=== PATIENT | female | born 1980 | race Caucasian/White ===

== ENCOUNTER 2016-09-18 05:50 | Emergency (ER) | payer BC, OTHER ==
[2016-09-18] MEDS ORDERED: methylPREDNISolone TAB* 4 MG PO ONE (06:45)
[2016-09-18] MEDS ORDERED: methylPREDNISolone SOD SUCC* 125 MG 2 ML VIAL IV ONE (06:50)
--- NOTE | 2016-09-18 07:01 | ED ---
Armando Mckeon Rebecca, scribed for Claude Brittonuel on 09/18/16 at 0639 . Complex/Multi-Sys Presentation - HPI Summary HPI Summary: Pt is a 35 y/o F who presents to ED c/o symptoms of MS flareups. C/o numbness in the R hand and RUE forearm. Sensation began suddenly this morning and has been constant since onset. Denies any pain. Notes that 3 weeks ago she began experiencing shoulder blade pain, which is typical for MS episodes. Neurologist is Dr. Razo ([place]). PMHx MS. Last course of steroids was 2 years ago at [facility], followed by a Prednisone titer. Current episode is similar to prior episodes of MS flareups. - History Of Current Complaint Chief Complaint: EDGeneral Time Seen by Provider: 09/18/16 06:11 Hx Obtained From: Patient Onset/Duration: Sudden Onset, Still Present Timing: Constant Severity Currently: None Aggravating Factor(s): Nothing Alleviating Factor(s): Nothing Associated Signs And Symptoms: Positive: Other - Numbness of the R forearm and hand - Allergies/Home Medications Allergies/Adverse Reactions: Allergies Allergy/AdvReac Type Severity Reaction Status Date / Time Penicillins Allergy Hives Verified 09/18/16 06:13 Sulfa Antibiotics Allergy Hives Verified 09/18/16 06:13 PMH/Surg Hx/FS Hx/Imm Hx Endocrine/Hematology History: Denies: Hx Diabetes Cardiovascular History: Reports: Other Cardiovascular Problems/Disorders - sinus tachycardia Denies: Hx Hypertension, Hx Pacemaker/ICD Respiratory History: Denies: Hx Asthma History: Denies: Hx Dialysis, Hx Renal Disease Musculoskeletal History: Reports: Other Musculoskeletal History - Hx MS Sensory History: Denies: Hx Hearing Aid Neurological History: Reports: Other Neuro Impairments/Disorders - numbness and tingling Psychiatric History: Denies: Hx Panic Disorder - Surgical History Surgery Procedure, Year, and Place: 6 yrs ago tib fib compound Hx Anesthesia Reactions: No Infectious Disease History: No Infectious Disease History: Denies: Traveled Outside the [place] in Last 30 Days - Family History Known Family History: Positive: Hypertension - Social History Alcohol Use: Rare Substance Use Type: Reports: None Smoking Status (MU): Current Every Day Smoker Type: Cigarettes Amount Used/How Often: 1/2 PPD Have You Smoked in the Last Year: Yes Review of Systems Negative: Arthralgia - Denes any pain Positive: Numbness - R hand and RUE forearm numbness All Other Systems Reviewed And Are Negative: Yes Physical Exam Triage Information Reviewed: Yes Vital Signs On Initial Exam: Initial Vitals Temp Pulse Resp BP Pulse Ox 98.3 F 90 18 102/66 100 09/18/16 06:12 09/18/16 06:12 09/18/16 06:12 09/18/16 06:12 09/18/16 06:12 Vital Signs Reviewed: Yes Appearance: Positive: Well-Appearing, No Pain Distress Skin: Positive: Warm, Skin Color Reflects Adequate Perfusion, Dry Eyes: Positive: EOMI, EARL Neck: Positive: Supple, Nontender Respiratory/Lung Sounds: Positive: Clear to Auscultation, Breath Sounds Present Cardiovascular: Positive: RRR, Pulses are Symmetrical in both Upper and Lower Extremities Abdomen Description: Positive: Nontender, Soft Bowel Sounds: Positive: Present Musculoskeletal: Positive: Normal, Strength/ROM Intact Neurological: Positive: Normal, Sensory/Motor Intact, Alert, Oriented to Person Place, Time Diagnostics - Vital Signs Vital Signs Temp Pulse Resp BP Pulse Ox 09/18/16 06:12 98.3 F 90 18 102/66 100 - Laboratory Lab Statement: Any lab studies that have been ordered have been reviewed, and results considered in the medical decision making process. Re-Evaluation - Re-Evaluation First Eval Re-Evaluation Time: 06:50 Change: Unchanged Comment: Discussed current plan with patient. She expresses a desire not to have the CT Brain done. Complex Multi-Symp Course/Dx Assessment/Plan: Pt came with numbness of the right hand. Physical examination is unremearkable., no focal deficits. Consulted with neurology who recommended methylprednisone 250 mg BID, but pharmacy does not have those tablets, so will give IV Solumedrol once a day for 5 days and will send her to infusion center of [facility] for the next 4 days. Dx exacerbation of MS. Pt will be signed out to Dr. Prince. - Diagnoses Provider Diagnoses: Exacerbation of multiple sclerosis - Physician Notifications Discussed Care Of Patient With: Dr. Melgoza, neurologist, who advised that pt be treated in the ED with a course of methylprednisone. Time Discussed With Above Provider: 06:41 Discharge - Discharge Plan Condition: Stable Disposition: OTHER Discharge Disposition Comment: Pt will be signed out to Dr. Prince, pending CT Referrals: Jesenia Davis MD [Primary Care Provider] - The documentation as recorded by the Armando arriaza Rebecca accurately reflects the service I personally performed and the decisions made by Tobi palacios Emmanuel.
[2016-09-18] MEDS ORDERED: ALPRAZolam TAB* 0.5 MG PO ONE (07:28)
[2016-09-18 07:39] LABS: Hematocrit 39 % (35-47); Hemoglobin 12.9 g/dl (12.0-16.0); Mean Corpuscular HGB Conc 34 g/dl (31-36); Mean Corpuscular Hemoglobin 31 pg (27-31); Mean Corpuscular Volume 92 fL (80-97); Mean Platelet Volume 7 um3 (7.4-10.4); Red Blood Count 4.19 10^6/ul (4.0-5.4); Red Cell Distribution Width 14 % (10.5-15); White Blood Count 6.4 10^3/ul (3.5-10.8)
[2016-09-18 07:55] LABS: Albumin 4.1 g/dL (3.2-5.2); BUN/Creatinine Ratio 15.9 (8-20); Calcium 9.4 mg/dL (8.6-10.3); EGFR Non-African American 108.8 (>60); Globulin 2.6 g/dL (2-4); Potassium 3.8 mmol/L (3.5-5.0); Total Bilirubin 0.4 mg/dL (0.2-1.0); Total Protein 6.7 g/dL (6.4-8.9)
[2016-09-18 09:23] VITALS: BP 99/55
--- NOTE | 2016-09-18 09:55 | PN ---
Mich Mckeon SooYoung, scribed for Geraldo Prince MD on 09/18/16 at 0729 . Progress Note - Progress Note Note: Sign-out from Dr. Britton, shift change. 07: DO saw pt; reviewed plan of action: including infusion of Solu-Medrol today at ED, f/u with infusion center daily for next four days, and f/u with her neuro, Dr. Tc Razo in [place]. Pt is requesting Xanax .5 mg to help her relax when taking steroid medications. Will fill. 0900: Noted, pt has elevated HCG, appears that it is post-, pt delivered 1 week prior. D/C HOME STABLE WITH XANAX AND SOLU-MEDROL TO BE RECEIVED AT INFUSION CENTER, DAILY FOR THE NEXT 4 DAYS. F/U WITH HER NEUROLOGIST. The documentation as recorded by the scribeMich SooYoung accurately reflects the service I personally performed and the decisions made by me, Geraldo Prince MD.
--- NOTE | 2016-09-19 09:11 | ED ---
Shay Mckeon Soohyun, scribed for Geraldo Prince MD on 09/19/16 at 0851 . Progress - Progress Note Progress Note: Dr. Prince consulted and confirmed with infusion center at 0845 AM today that pt is to have 1 mg solumedrol a day x4 days. Verbal order given. Re-Evaluation - Re-Evaluation First Eval Re-Evaluation Time: 06:50 Change: Unchanged Comment: Discussed current plan with patient. She expresses a desire not to have the CT Brain done. Course/Dx - Diagnoses Provider Diagnoses: Exacerbation of multiple sclerosis - Provider Notifications Discussed Care Of Patient With: Infusion center at 0845 AM. Time Discussed With Above Provider: 06:41 The documentation as recorded by the ledyibShay collier Soohyun accurately reflects the service I personally performed and the decisions made by me, Geraldo Prince MD.
== END 2016-09-18 09:51 | disposition home or self-care (01) ==
LOC: ED 05:50
DX: G35 Multiple sclerosis (principal); Z88.0 Allergy status to penicillin; Z88.2 Allergy status to sulfonamides; F17.210 Nicotine dependence, cigarettes, uncomplicated
CPT/HCPCS: 36415; 80053; 84702; 85025; 96360; 99282; A9270-GY; J2930; J7509